=== PATIENT | male | born 2000 | race Caucasian/White ===

== ENCOUNTER 2019-10-18 20:57 | Emergency (ER) | payer SELFPAY ==
[2019-10-18 21:03] VITALS: BP 146/82; PULSE 85; RESP 18; TEMP 36.8; O2SAT 99; BMI 20.6
--- NOTE | 2019-10-18 21:26 | ED_ITS ---
HPI - General Adult General: Chief complaint: General Medical Stated complaint: throat pain/swelling Time Seen by Provider: 10/18/19 21:24 History of Present Illness: HPI narrative: Patient is a 19-year-old male who comes to the ED with sore throat. Patient says symptoms started approximately 3 days ago. Patient says he has felt hot at times but has not taken his temperature at home. Denies any cough, chest pain, shortness of breath, nausea/vomiting, abdominal pain, bladder or bowel symptoms. Patient denies any known contact with any sick people. Patient did say he had some nasal drainage before sore throat started. Patient has been taking 400 mg of ibuprofen 3 times a day for the past couple days and gargling salt water. Associated symptoms: Deny chest pain, dyspnea, headache(s), nausea, rash, palpitations or vomiting Review of Systems Const: Reports: fever(s) (subjective fevers); Denies: chills or fatigue Eyes: Denies: change in vision or eye discomfort ENMT: Reports: throat pain and nasal discharge (resolved); Denies: odynophagia or nasal congestion Card: Denies: chest pain, palpitations, edema, swelling of feet/ankles, dyspnea on exertion or orthopnea Resp: Denies: dyspnea, productive cough or non-productive cough GI: Denies: abdominal pain, nausea, vomiting, diarrhea, constipation or hematochezia : Denies: flank pain, difficulty urinating, dysuria or hematuria Musc: Denies: neck pain, back pain or extremity swelling Skin/Breast: Denies: rash or new lesions Neuro: Denies: headache(s), numbness in extremities or weakness in extremities Physical Exam Const: COMMON NORMALS: no acute distress, patient oriented x3, healthy appearing and alert GENERAL APPEARANCE: cooperative and comfortable HENMT: COMMON NORMALS: normocephalic HEAD & SCALP: normocephalic MOUTH: Normal oral and palatal mucosa present THROAT: uvula midline, abnormal tonsil right erythema, exudates and hypertrophy 3+ and posterior oropharynx abnormal erythema Eye: COMMON NORMALS: Equal, round and reactive pupils present PUPIL: Yes Equal, round and reactive pupils present Neck/C-Spine: COMMON NORMALS: supple GENERAL: Yes normal visual inspection Resp: COMMON NORMALS: normal respiratory effort, No retractions, No use of accessory muscles and clear to auscultation bilaterally AUSCULTATION: clear to auscultation bilaterally Cardio: COMMON NORMALS: regular rate, regular rhythm, S1 normal heart sound present, S2 normal heart sound present, No gallops present (Cardio), No clicks present (Cardio), No murmurs present (Cardio) and Peripheral pulses 2+ throughout RATE: regular rate RHYTHM: regular rhythm HEART SOUNDS: S1 normal heart sound present and S2 normal heart sound present PERIPHERAL PULSES: Peripheral pulses 2+ throughout GI: COMMON NORMALS: Normal to inspection, nondistended, normoactive bowel sounds present, Soft to palpation, non-tender and no masses PALPATION: Yes Soft to palpation : COMMON NORMALS: Yes no CVA tenderness BLADDER/KIDNEY EXAM: Yes no CVA tenderness Back/Pelvis: COMMON NORMALS: no CVA tenderness Extremity: COMMON NORMALS: normal to inspection Neuro: COMMON NORMALS: patient oriented x3 and moves all extremities SENSORIUM/ORIENTATION: Yes alert Skin: COMMON NORMALS: no rashes or lesions noted GENERAL SKIN EXAM: no rashes or lesions noted and dry skin Course Vital Signs: Vital signs: Vital Signs Temperature 98.3 F 10/18/19 21:03 Pulse Rate 85 10/18/19 21:03 Respiratory Rate 18 10/18/19 21:03 Blood Pressure 146/82 10/18/19 21:03 Pulse Oximetry 99 10/18/19 21:03 MDM - General Adult MDM Narrative: Medical decision making narrative: Patient is a 39-year-old male comes to the ED with sore throat. Physical exam shows right tonsil with erythema, exudates and hypertrophy 3+. Posterior oropharynx has some erythema as well. Rapid strep test was negative. Patient was diagnosed with acute viral tonsillitis. Patient was told to take ibuprofen and Tylenol for fever pain and to do symptom management. Gargle salt water to help with sore throat. Drink plenty of fluids and stay hydrated. Follow-up with PCP in 7 to 10 days. Patient understood and agree with plan. Lab Data: Attestation: I reviewed the patient's lab results. Labs: Lab Results 10/18/19 Range/Units 21:32 Group A Strep Rapi d Negative (Negative) Discharge Plan Discharge Patient Disposition: Home Clinical Impression: Acute viral tonsillitis Condition: Stable Discharge Orders: Discharge Order (Routine); Ordered 09/01/20 Ordered By: Quincy Godwin Discharge Diet: Regular Discharge Activity: Increase activity as tolerated Patient Instructions: Tonsillitis (ED) Activity Restrictions/Additional Instructions: Follow-up with medical provider as directed in 7-10 days. Take ibuprofen or Tylenol for fever pain. Drink plenty of fluids and stay hydrated. Symptom management and gargle salt water to help with sore throat. Return to the ER or your medical provider if condition worsens. Please read and understand discharge instructions. If any questions, please ask. Discharge Date/Time: 10/18/19 22:13 Coding Level of Care Code ED [employer] Wh[employer] Machine Operator for Analisa Fwd Exam Comprehensive
[2019-10-18 22:00] LABS: Rapid Strep A Test Negative (Negative)
== END 2019-10-18 22:13 | disposition home or self-care (01) ==
PROVIDERS: Emergency Provider Physician Assistant
DX: J03.80 Acute tonsillitis due to other specified organisms (principal)
CPT/HCPCS: 12345; 87081; 87880; 99281; 99282

== ENCOUNTER 2021-09-06 19:24 | Emergency (ER) | payer SELFPAY ==
[2021-09-06 19:31] VITALS: BP 125/102; TEMP 37; BMI 21.1
[2021-09-06 19:37] VITALS: PULSE 102; O2SAT 96
--- NOTE | 2021-09-06 19:55 | XRR_ITS ---
PROCEDURE INFORMATION: Exam: XR Chest Exam date and time: 09/06/2021 8:03 PM Age: 20 years old Clinical indication: Angina and cough and shortness of breath; Additional info: SOB TECHNIQUE: Imaging protocol: Radiologic exam of the chest. Views: 1 view. COMPARISON: No relevant prior studies available. FINDINGS: Lungs: Unremarkable. No consolidation. Pleural spaces: Unremarkable. No pleural effusion. No pneumothorax. Heart/Mediastinum: Unremarkable. No cardiomegaly. Bones/joints: Unremarkable. XR/XR chest 1V portable [id number] IMPRESSION: No acute findings.
--- NOTE | 2021-09-06 19:56 | ECG_ITS ---
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 Measurements Intervals [place] Rate: 65 P: 67 GA: 131 QRS: 83 QRSD: 94 T: 52 QT: 374 QTc: 389 Interpretive Statements SINUS RHYTHM VOLTAGE CRITERIA FOR LVH [MEETS CRITERIA IN ONE OF: R(aVL), S(V1), R(V5), R(V5/V6)+S(V1)] INTERPRETATION BASED ON A DEFAULT AGE OF 40 YEARS No previous ECG available for comparison Electronically Signed On 09-07-2021 20:15:07 CDT by Benjamin Han M.D. [email or web address]
--- NOTE | 2021-09-06 20:00 | ED_ITS ---
HPI - Anxiety General: Chief Complaint: Anxiety Stated Complaint: ANXIETY Time Seen by Provider: 09/06/21 19:49 Source: patient and EMS Mode of arrival: EMS Limitations: no limitations History of Present Illness: 20-year-old male who states that he had eaten an edible today someone at home made he states that shortly after he felt like he could not breathe and was having anxiety. Patient here is quite anxious tachypneic. He states he is also had some cough and congestion over the last 3 to 4 days he denies any chest pain denies any fevers he denies any worsening improving factors at this time. Associated symptoms: Deny chest pain, chills, fever(s), headache(s), nausea or vomiting Review of Systems Const: Denies: fever(s), chills, body aches or change in appetite Eyes: Denies: blurry vision or eye discomfort ENMT: Denies: throat pain or dental pain Card: Denies: chest pain Resp: Denies: dyspnea GI: Denies: abdominal pain, nausea, vomiting or diarrhea : Denies: dysuria Musc: Denies: neck pain or back pain Skin/Breast: Denies: rash Neuro: Denies: headache(s) Psych: Reports: anxiety Toni/Lymph: Denies: easy bruising All/Imm: Denies: urticaria PFSH ED PFSH: Medical History (Updated 09/06/21 @ 20:34 by Milton Moe MD) No pertinent past medical history Social History (Updated 09/06/21 @ 20:01 by Milton Moe MD) Substance/Drug Use: current Substance/Drug use type: Marijuana Physical Exam Const: COMMON NORMALS: no acute distress, patient oriented x3 and healthy appearing GENERAL APPEARANCE: anxious HENMT: COMMON NORMALS: normocephalic and atraumatic HEAD & SCALP: normocephalic and atraumatic Eye: COMMON NORMALS: Equal, round and reactive pupils present and EOMs intact bilaterally PUPIL: Yes Equal, round and reactive pupils present Neck/C-Spine: COMMON NORMALS: full ROM and supple Chest: COMMONS NORMALS: normal inspection of the chest and normal palpation of entire chest wall Resp: COMMON NORMALS: normal respiratory effort, No retractions, No use of accessory muscles and clear to auscultation bilaterally AUSCULTATION: clear to auscultation bilaterally Cardio: COMMON NORMALS: regular rhythm and No murmurs present (Cardio) RATE: tachycardic RHYTHM: regular rhythm GI: COMMON NORMALS: Normal to inspection, nondistended, normoactive bowel sounds present, Soft to palpation, non-tender and no masses PALPATION: Yes Soft to palpation Extremity: COMMON NORMALS: normal to inspection and full ROM Neuro: COMMON NORMALS: patient oriented x3, moves all extremities and no focal motor deficits Psych: COMMON NORMALS: mental status grossly normal, Normal thought process present and cooperative THOUGHT PROCESS: Normal thought process present Skin: COMMON NORMALS: no rashes or lesions noted and no wounds GENERAL SKIN EXAM: no rashes or lesions noted Course Vital Signs: Vital signs: Vital Signs Temperature 98.6 F 09/06/21 19:31 Pulse Rate 102 H 09/06/21 19:37 Blood Pressure 125/102 09/06/21 19:31 Pulse Oximetry 96 09/06/21 19:37 MDM - Anxiety Medical Decision Making Patient presents her anxiety attack after eating homemade edibles. He feels much improved here after Ativan is blood work EKG and x-ray are normal he is stable for discharge is to follow-up with PCP and return if worsening. Lab Data : 09/06/21 19:30 09/06/21 19:30 Laboratory Results WBC 9.0 10^3/uL (4.0-10.0) 09/06/21 19:30 RBC 5.52 10^6/uL (4.1-5.3) H 09/06/21 19:30 Hgb 16.6 g/dL (11.7-16.6) 09/06/21 19:30 Hct 47.9 % (42.0-52.0) 09/06/21 19:30 MCV 86.8 fl (80-94) 09/06/21 19:30 MCH 30.1 pg (28.0-34.0) 09/06/21 19: MCHC 34.7 g/dL (30.0-36.0) 09/06/21 19:30 RDW 11.9 % (12.1-15.1) L 09/06/21 19: Plt Count 246 10^3/cmm (130-400) 09/06/21 19: MPV 11.0 fL (7.4-10.4) H 09/06/21 19:30 Neut % (Auto) 45.5 % 09/06/21 19:30 Lymph % (Auto) 42.2 % 09/06/21 19:30 [place] % (Auto) 8.9 % 09/06/21 19:30 Eos % (Auto) 2.5 % 09/06/21 19:30 Baso % (Auto) 0.7 % 09/06/21: Neut # (Auto) 4.08 10^3/uL (1.8-7.7) 09/06/21: Lymph # (Auto) 3.8 10^3/uL (0.8-4.8) 09/06/21: [place] # (Auto) 0.8 10^3/uL (0.2-0.9) 09/06/21: Eos # (Auto) 0.2 10^3/uL (0.0-0.8) 09/06/21: Baso # (Auto) 0.1 10^3/uL (0.0-0.1) 09/06/21: Nucleated RBC % (auto) 0 % 09/06/21: Nucleated RBCs # 0.0 /100WBC 09/06/21 19: Sodium 140 mmol/L (136-145) 09/06/21 19: Potassium 3.6 mmol/L (3.5-5.1) 09/06/21: Chloride 97 mmol/L (98-107) L 09/06/21: Carbon Dioxide 28 mmol/L (22-29) 09/06/21: Anion Gap 18.6 (5-19) 09/06/21: BUN 14 mg/dL (6-20) 09/06/21: Creatinine 0.7 mg/dL (0.7-1.2) 09/06/21: GFR Calculation 141.0 mL/min (90-130) H 09/06/21: Glucose 104 mg/dL (65-115) 09/06/21 19: Calculated Osmolality 291 mOsm/kg (285-295) 09/06/21 19: Calcium 9.7 mg/dL (8.5-10.5) 09/06/21 19:30 Total Bilirubin 0.8 mg/dL (0.15-1.2) 09/06/21 19:30 AST 20 U/L (0-40) 09/06/21 19:30 ALT 13 U/L (0-41) 09/06/21 19:30 Alkaline Phosphatase 115 IU/L (40-130) 09/06/21 19:30 Total Protein 8.4 g/dL (6.6-8.7) 09/06/21 19:30 Albumin 5.2 g/dL (3.5-5.2) 09/06/21 19:30 Globulin 3.2 g/dL (1.3-4.6) 09/06/21 19:30 Discharge Plan Discharge Patient Disposition: Home Clinical Impression: Acute anxiety Discharge Orders: Discharge ED (Routine); Ordered 09/06/21 Ordered By: Milton Moe Discharge Diet: Advance as tolerated Discharge Activity: Resume usual activity Patient Instructions: Anxiety (ED) Coding Level of Care Code ED Director Of Graduate Admissions for Calig Fwd Exam Comprehensive
[2021-09-06 20:12] LABS: Basophils # 0.1 10^3/uL (0.0-0.1); Basophils % 0.7 %; Eosinophils # 0.2 10^3/uL (0.0-0.8); Eosinophils % 2.5 %; Hematocrit 47.9 % (42.0-52.0); Hemoglobin 16.6 g/dL (11.7-16.6); Lymphocytes # 3.8 10^3/uL (0.8-4.8); Lymphocytes % 42.2 %; Mean Corpuscular HGB Conc 34.7 g/dL (30.0-36.0); Mean Corpuscular Hemoglobin 30.1 pg (28.0-34.0); Mean Corpuscular Volume 86.8 fl (80-94); Monocytes # 0.8 10^3/uL (0.2-0.9); Monocytes % 8.9 %; Neutrophils # 4.08 10^3/uL (1.8-7.7); Neutrophils % 45.5 %; Nucleated Red Blood Cells % 0 %; Platelet Count 246 10^3/cmm (130-400); Red Blood Count 5.52 10^6/uL (4.1-5.3); Red Cell Distribution Width 11.9 % (12.1-15.1)
[2021-09-06] MEDS: LORazepam 2 mg/mL INJ 1 mL 1 MG IVP (20:14)
[2021-09-06] MEDS: lactated ringers 1,000 ML 999 ML IV (20:14)
[2021-09-06 20:32] LABS: Alanine Aminotransferase 13 U/L (0-41); Albumin Level 5.2 g/dL (3.5-5.2); Alkaline Phosphatase 115 IU/L (40-130); Anion Gap 18.6 (5-19); Aspartate Amino Transferase 20 U/L (0-40); Blood Urea Nitrogen 14 mg/dL (6-20); Calcium 9.7 mg/dL (8.5-10.5); Carbon Dioxide 28 mmol/L (22-29); Chloride 97 mmol/L (98-107); Globulin 3.2 g/dL (1.3-4.6); Glucose 104 mg/dL (65-115); Osmolality Calculated 291 mOsm/kg (285-295); Potassium 3.6 mmol/L (3.5-5.1); Sodium 140 mmol/L (136-145); Total Bilirubin 0.8 mg/dL (0.15-1.2); Total Protein 8.4 g/dL (6.6-8.7)
[2021-09-06 21:05] VITALS: BP 119/61; PULSE 58; RESP 18; TEMP 37.3; O2SAT 97
== END 2021-09-06 21:06 | disposition home or self-care (01) ==
PROVIDERS: Emergency Provider Emergency Medicine
DX: F41.9 Anxiety disorder, unspecified (principal)
CPT/HCPCS: 71045; 80053; 85025; 93005; 96361; 96374; 99285; J2060